=== PATIENT | female | born 1975 | race African-American/Black ===

== ENCOUNTER 2025-05-19 12:05 | Outpatient (CLI) | payer OTHER | END 2025-05-19 12:06 | disposition home or self-care (01) | LOC: CSHMAMMO 12:05 | PROVIDERS: ATTEND Family Medicine | DX: Z12.31 Encounter for screening mammogram for malignant neoplasm of breast (principal); Z80.3 Family history of malignant neoplasm of breast; N64.89 Other specified disorders of breast | CPT/HCPCS: 77067 ==

== ENCOUNTER 2025-06-03 08:37 | Outpatient (CLI) | payer OTHER | END 2025-06-03 08:38 | disposition home or self-care (01) | LOC: CSHMAMMO 08:37 | PROVIDERS: ATTEND Family Medicine | DX: N64.89 Other specified disorders of breast (principal) | CPT/HCPCS: G0279 ==